=== PATIENT | female | born 1945 | race Caucasian/White ===

== ENCOUNTER 2017-06-27 16:36 | Emergency (ER) | payer MEDICARE ==
[2017-06-27 16:44] VITALS: BP 132/65
--- NOTE | 2017-06-27 17:00 | UC ---
Complaint Female HPI - HPI Summary HPI Summary: 71 YEAR OLD FEMALE PRESENTS WITH COMPLAINS OF BURNING AND FREQUENCY WITH URINATION. - History Of Current Complaint Chief Complaint: [facility] Stated Complaint: URINARY ISSUE Time Seen by Provider: 06/27/17 16:59 - Allergies/Home Medications Allergies/Adverse Reactions: Allergies Allergy/AdvReac Type Severity Reaction Status Date / Time Codeine Allergy Severe "HYPER", Verified 06/27/17 16:43 INSOMNIA Sulfa Antibiotics Allergy Severe Rash Verified 06/27/17 16:43 Home Medications: Home Medications Omeprazole CAP* [Prilosec CAP* 20 MG] 20 mg PO DAILY 06/27/17 [History Confirmed 06/27/17] PMH/Surg Hx/FS Hx/Imm Hx Previously Healthy: Yes - Surgical History Surgical History: Yes Surgery Procedure, Year, and Place: HYSTERECTOMY - Family History Known Family History: Positive: Hypertension Negative: Cardiac Disease, Diabetes - Social History Alcohol Use: Occasionally Substance Use Type: None Smoking Status (MU): Never Smoked Tobacco Review of Systems Constitutional: Negative Skin: Negative Eyes: Negative ENT: Negative Respiratory: Negative Cardiovascular: Negative Gastrointestinal: Negative Genitourinary: Dysuria, Frequency, Urgency Motor: Negative Neurovascular: Negative Musculoskeletal: Negative Neurological: Negative Psychological: Negative All Other Systems Reviewed And Are Negative: Yes Physical Exam Triage Information Reviewed: Yes Vital Signs: Initial Vital Signs Temp 36.9 C 06/27/17 16:40 Pulse 67 06/27/17 16:40 Resp 16 06/27/17 16:40 BP 132/65 06/27/17 16:40 Pulse Ox 100 06/27/17 16:40 Eye Exam: Normal ENT Exam: Normal Dental Exam: Normal Neck exam: Normal Neck: Positive: 1 Respiratory Exam: Normal Cardiovascular Exam: Normal Abdominal Exam: Normal Musculoskeletal Exam: Normal Neurological Exam: Normal Psychological Exam: Normal Skin Exam: Normal Complaint Female Dx - Differential Dx/Diagnosis Provider Diagnoses: URINARY TRACT INFECTION. DYSURIA Discharge - Discharge Plan Condition: Stable Disposition: HOME Prescriptions: Ciprofloxacin TAB* [Cipro 500 MG TAB*] 500 mg PO BID #10 tab Patient Education Materials: Urinary Tract Infection in Women (ED) Referrals: Haley Denton MD [Primary Care Provider] - If Needed
== END 2017-06-27 17:57 | disposition home or self-care (01) ==
LOC: UCEAST 16:36
DX: N39.0 Urinary tract infection, site not specified (principal); R30.0 Dysuria; Z90.710 Acquired absence of both cervix and uterus; Z88.5 Allergy status to narcotic agent; Z88.2 Allergy status to sulfonamides
CPT/HCPCS: 81003; 87077; 87086; 87186; 99212; G0463

== ENCOUNTER 2024-06-26 07:30 | Observation (INO) ==
[~2024-06-26 07:30] MED LIST: Naloxone 0.4 mg VIAL 0.4 mg/ml 1 ml VIAL IV PRN
[2024-06-26] MEDS ORDERED: ceFAZolin 2 GM in NS PREMIX 2 GM/100 ML BAG IVPB ONE (10:15)
[2024-06-26 10:45] LABS: Rapid COVID-19 Molecular Undetected (Undetected)
[2024-06-26] MEDS ORDERED: Propofol 10 MG/ML 20 ML BTL ONE ×3 (11:02→16:37)
[2024-06-26] MEDS ORDERED: Lidocaine 2% PF 5 ML VIAL ONE (11:02)
[2024-06-26] MEDS ORDERED: fentaNYL 100 mcg/2 ml 50 MCG/ML VIAL ONE ×2 (11:02→17:36)
[2024-06-26] MEDS ORDERED: Ondansetron 4 mg VIAL 2 MG/ML 2 ml VIAL ONE (11:07)
[2024-06-26 11:37] LABS: INR 1.03 (0.83-1.13)
[2024-06-26] MEDS ORDERED: Ropivacaine 5 MG/ML 20 ML VIAL 0.5% (100 MG) ONE (13:08)
[2024-06-26] MEDS ORDERED: Lactulose 30 ml UDC PO PRN (14:43)
[2024-06-26] MEDS ORDERED: Ondansetron ODT 4 mg TAB 4 MG TAB PO PRN (14:43)
[2024-06-26] MEDS ORDERED: Morphine 2 MG/ML SYRINGE IV PRN (14:43)
[2024-06-26] MEDS ORDERED: Magnesium Hydroxide LIQ 30 ML UDC PO PRN (14:43)
[2024-06-26] MEDS ORDERED: Ondansetron 4 mg VIAL 2 MG/ML 2 ml VIAL IV PRN (14:43)
[2024-06-26] MEDS ORDERED: Dexamethasone IV 4 MG/ML VIAL 1 ml VIAL ONE (14:55)
[2024-06-26] MEDS ORDERED: Acetaminophen IV 1 GM/100ML 1,000 MG/100 ML BAG IV ONE (16:17)
[2024-06-26] MEDS: fentaNYL 100 mcg/2 ml 50 MCG/ML VIAL IV PRN (17:39)
[2024-06-26] MEDS: Buffered Lidocaine 1% SYRIN 1 ml INTRADERM ONE (18:51)
[2024-06-26] MEDS: ceFAZolin 2 GM in NS PREMIX 2 GM/100 ML BAG IVPB SCH ×2 (18:52→22:21)
[2024-06-26] MEDS: Lactated Ringers 1000 ml BAG 1,000 ML IV SCH ×2 (18:52)
[2024-06-26] MEDS: Magnesium Hydroxide LIQ 30 ML UDC PO SCH (20:36)
[2024-06-26] MEDS: Mometasone 220 MCG MDI INH SCH (20:36)
[2024-06-26] MEDS: Lactated Ringers 1000 ml BAG 1,000 ML IV ONE (22:45)
[2024-06-27] MEDS: Calcium Carb (TUMS) 500 mg CHEW TAB PO PRN (01:29)
[2024-06-27 06:10] LABS: Hematocrit 33.5 % (35-45); Hemoglobin 11.2 g/dL (11.5-14.3); Mean Platelet Volume 7.6 fL (7.5-11.2); Platelet Count 205 10^3/uL (150-450)
[2024-06-27 06:53] LABS: Calcium 8.3 mg/dL (8.6-10.3); Creatinine, Serum 0.7 mg/dL (0.51-0.95)
[2024-06-27] MEDS: Vitamin THERAPEUTIC TAB PO SCH (09:05)
[2024-06-28 05:47] LABS: Hematocrit 33.1 % (35-45); Hemoglobin 11.4 g/dL (11.5-14.3); Mean Platelet Volume 7.9 fL (7.5-11.2); Platelet Count 176 10^3/uL (150-450)
[2024-06-28 10:02] VITALS: BP 99/52
== END 2024-06-28 12:25 | disposition home or self-care (01) ==
LOC: AA 10:00 → INTOOBSV 10:00 → SSU 18:57
PROVIDERS: ADMIT Orthopaedic Surgery Adult Reconstructive Orthopaedic Surgery; ATTEND Orthopaedic Surgery Adult Reconstructive Orthopaedic Surgery